=== PATIENT | female | born 1930 | race Caucasian/White ===

== ENCOUNTER → 2017-03-07 | Outpatient (CLI) | payer OTHER ==
[~2017-03-07] MED LIST: ACETAMINOPHEN-1 EAC1 PO; ADULT LOW DOSE81 MG PO; APAP500 PO; ASPIRIN EC81 M1 PO; ASPIRIN325 PO; ASTAPRO PO; BUTRANS1 EAC1 TD; CALCIUM; CALCIUM 500 +1 EAC4 PO; CALCIUM 500 +1 EAC5 PO; CARVEDILOL25 MG PO; GABAPENTIN100 MG PO; IBUPROFEN 200200 M1 PO; LISINOPRIL20 MG PO; MELOXICAM7.5 MG; MELOXICAM7.5 MG PO; MOBIC7.5 MG PO; MULTIVITAMINS PO; NORVASC 5 MG TAB5 MG PO; NUCYNTA50 MG PO; OMEPRAZOLE20 M2 PO; OMEPRAZOLE20 MG PO; PLAVIX 75 MG TA75 MG PO; PREDNISONE 5 MG5 M1 PO; PREDNISONE50 MG PO; PRILOSEC 20 MG20 MG; PROTONIX40 M2 PO; SILVADENE20 GM TP; SYMBICORT160 MCG/4. INH; TRAMADOL 50 MG50 MG PO; TYLENOL EX-STR500 M2 PO; ULTRACET TABLE1 EACH PO; ZOCOR40 MG PO
== END ==
LOC: CAT 03-05 18:59
DX: M47.894 Other spondylosis, thoracic region (principal); J43.9 Emphysema, unspecified

== ENCOUNTER 2017-11-12 18:46 | Emergency (ER) | payer OTHER ==
[~2017-11-12] VITALS: Ht 188 cm; Wt 65.8 kg
--- NOTE | ~2017-11-12 | EKG ---
[place] [address] [facility] [address] [place] [address] ELECTROCARDIOGRAM REPORT Name: ZENON STANTON Room #: DEP [facility]#: [id number] Admission: 11/12/17 Attend Phys: Discharge: 11/12/17 Date of : [birth year] Report #: [id number] THIS REPORT FOR: //name// [facility] ED Test Date: 2017-11-12 Test Time: 18:53:45 Pat Name: ZENON STANTON Department: Room: Gender: F Channeler Outsole: JOSE : 1930 Requested By: Eufemia Stevens Order Number: [id number] MD: Fletcher Calabrese Measurements Intervals [place] Rate: 80 P: 52 MI: 151 QRS: 3 QRSD: 95 T: 31 QT: 400 QTc: 462 Interpretive Statements Sinus rhythm Multiple premature complexes, vent & supraven Compared to ECG 12/16/2013 11:47:01 Sinus tachycardia no longer present Electronically Signed On 11-13-2017 7:57:58 CDT by Fletcher Calabrese [email or web address] <ELECTRONICALLY SIGNED> By: Fletcher Calabrese MD, [facility] 11/13/17 [id number] Fletcher Calabrese MD, FAC /EPI
[~2017-11-12 18:46] MED LIST changes: +ACYCLOVIR 400400 MG PO; +CYMBALTA20 MG PO; +DOXYCYCLINE 10100 MG PO; +LASIX 40 MG TAB40 M2 PO; +MUCINEX DM ER1 EAC1 PO; +VENTOLIN HFA 1818 GM INH
[2017-11-12 20:16] LABS: ABSOLUTE NEUTROPHILS 3.7 thou/uL (1.4-8.2); BASOPHILS 0.3 % (0.0-2.0); EOSINOPHILS 1.4 % (0.0-3.0); HEMATOCRIT 44.1 % (37.0-47.0); HEMOGLOBIN 14.8 gm/dL (12.0-15.0); LYMPHOCYTES 36.5 % (24.0-44.0); MCH 33.4 pg (26.0-34.0); MCHC 33.6 g/dL (28.0-37.0); MCV 99.3 fL (80.0-100.0); MONOCYTES 7.4 % (1.0-8.0); POLYS 54.4 % (36.0-66.0); RBC 4.44 mil/uL (4.20-5.00); RDW 13.3 % (10.5-14.5); WBC 6.9 thou/uL (4.0-11.0)
[2017-11-12 20:28] LABS: CALCIUM 8.7 mg/dL (8.5-10.1); CREATININE 0.7 mg/dL (0.6-1.0); POTASSIUM 3.9 mmol/L (3.5-5.1)
[2017-11-12 20:37] LABS: PLATELET COUNT 80 thou/uL (150-400)
== END 2017-11-12 22:53 | disposition home or self-care (01) ==
LOC: ER 18:46
PROVIDERS: Emergency Medicine
DX: F10.121 Alcohol abuse with intoxication delirium (principal); M19.90 Unspecified osteoarthritis, unspecified site; Z95.9 Presence of cardiac and vascular implant and graft, unspecified; Z88.1 Allergy status to other antibiotic agents; Z88.0 Allergy status to penicillin; Z88.2 Allergy status to sulfonamides; Z88.8 Allergy status to other drugs, medicaments and biological substances; Z87.891 Personal history of nicotine dependence

== ENCOUNTER → 2018-10-27 | Outpatient (CLI) | payer OTHER | LOC: RAD 10:24 | DX: J98.4 Other disorders of lung (principal) ==

== ENCOUNTER → 2018-12-31 | Outpatient (CLI) | payer OTHER | LOC: RAD 10:18 → CAT 10:18 | DX: J32.9 Chronic sinusitis, unspecified (principal); R10.2 Pelvic and perineal pain; M47.816 Spondylosis without myelopathy or radiculopathy, lumbar region; M16.0 Bilateral primary osteoarthritis of hip ==